=== PATIENT | female | born 1930 | race Caucasian/White ===

== ENCOUNTER → 2016-08-31 | Day surgery (SDC) | payer OTHER ==
[~2016-08-31] MED LIST: ACETAMINOPHEN PO; CALCIUM + D 6001 TA1 PO; HYDROCODONE-APA1 T55 PO; LIPITOR20 MG PO; LO-DOSE ASPIRIN81 M1 PO; LOSARTAN-HCTZ1 EAC2 PO; METAMUCIL POWD174 GM PO; MOBIC15 MG PO; MULTIVITAMIN PO; [UNRECOGNIZED DRUG - OTHER] PO
--- NOTE | ~2016-08-31 | OR ---
Unit #: [id number] #: [id number] Patient: JUMANA OKEEFE [id number] [address] [place], [place] [address] [id number] MR#: [id number] NAME: JUMANA OKEEFE ROOM: Date of Procedure: 08/31/2016 Admission Date: 08/31/2016 Surgeon: Ruben Eden M.D. : 1930 Attending Physician: Ruben Eden M.D. Primary Care Physician: Norma Feliz M.D. [facility] OPERATIVE NOTE PROCEDURE PERFORMED Lumbar epidural steroid injection under x-ray guided needle placement. PREOPERATIVE DIAGNOSES 1. Acute lumbar radiculitis. 2. Spinal stenosis, lumbosacral spine. 3. Degenerative joint disease, lumbosacral spine. 4. Degenerative disk disease, lumbosacral spine. 5. Facet arthrosis, lumbosacral spine. 6. Facet arthralgia, lumbosacral spine. INDICATIONS FOR PROCEDURE The patient presents today status post one previous lumbar approach epidural steroid injection for an acute right-sided radiculitis, which had failed to respond to conservative measures. She states she got very little relief and what relief she did get was incomplete. After discussing risks and benefits of proceeding today with second lumbar approach epidural steroid injection as well as referral to [facility] for potential facet joint injections, the patient agreed this would be the appropriate course of action. DESCRIPTION OF PROCEDURE She was then taken to the operating room, where she was prepped and draped in a sterile manner. Standard monitors were applied. She refused all forms of sedation and lumbar epidural space accessed the L5-S1 and L2-3 levels using loss of resistance technique and x-ray guidance. Needle placement was confirmed with injection of 2 mL at each level. There was good superior and inferior flow at both these levels. Following successful needle placement at the L2-3 and the L5-S1 levels utilizing approximately 14 seconds of x-ray time, the patient received an injectate containing 4 mL of normal saline and 40 mg of methylprednisolone at each site for total injected volume of 8 mL of normal saline and 80 mg of methylprednisolone. She tolerated this procedure well. She was discharged home with followup instructions, which included return date as early as 12/07/2016 if we could be of further service to her. She was instructed to keep all primary care and referral consultations including the new consultation from [facility] in the interim. Dictated by... Ruben Eden M.D. CARLOS/shy Unit #: [id number] #: [id number] Patient: JUMANA OKEEFE Mohit TD: 09/01/2016 03:12 JOB #: [id number] SUR[facility] OPERATIVE NOTE X Koffi Eden MD PROCEDURE OPERATIVE NOTE
== END | disposition home or self-care (01) ==
LOC: CCSC 10:03
DX: M51.17 Intervertebral disc disorders with radiculopathy, lumbosacral region (principal); M47.27 Other spondylosis with radiculopathy, lumbosacral region; M48.07 Spinal stenosis, lumbosacral region; M19.90 Unspecified osteoarthritis, unspecified site; Z88.2 Allergy status to sulfonamides; Z88.5 Allergy status to narcotic agent; Z98.41 Cataract extraction status, right eye; Z98.42 Cataract extraction status, left eye; Z98.890 Other specified postprocedural states
CPT/HCPCS: J1040; J2250